=== PATIENT | male | born 1960 ===

== ENCOUNTER → 2018-10-07 | Outpatient (CLI) | payer BC ==
[~2018-10-07] MED LIST: LIDOCAINE/PRILOCAINE 2.5-2.5% KIT ONE; MUPIROCIN 2% OINT 22 GM TUBE ONE; PROMETHAZINE HCL (IM) 25 MG/ML VIAL ONE
== END ==
LOC: WCC 10:36
PROVIDERS: ATTEND Family Medicine
DX: E11.621 Type 2 diabetes mellitus with foot ulcer (principal); E11.8 Type 2 diabetes mellitus with unspecified complications; L97.418 Non-pressure chronic ulcer of right heel and midfoot with other specified severity; I87.2 Venous insufficiency (chronic) (peripheral); R60.9 Edema, unspecified; I10 Essential (primary) hypertension
CPT/HCPCS: 87071; 87075; 87186; 87205